=== PATIENT | female | born 1975 | race Two or more races ===

== ENCOUNTER 2024-06-14 05:53 | Emergency (ER) | payer MEDICAID, SELFPAY ==
[2024-06-14 05:55] VITALS: BMI 25.0
[2024-06-14 06:19] VITALS: BP 121/80; PULSE 75; RESP 16; TEMP 36.7; O2SAT 97
--- NOTE | 2024-06-14 06:35 | PD.EDRME ---
Rapid Medical Screening Exam RME Arrival date/time: 06/14/24 05:53 49-year-old female significant past medical history of diabetes presents to clinic with complaints of polyuria, dizziness and fatigue. I have greeted and performed a focused initial assessment of this patient. Initial appropriate labs ordered at this time. A comprehensive ED assessment and evaluation of the patient and analysis of all test and completion of medical decision making process will be conducted by additional ED provider. Chief Complaint: Dizziness Time Seen by Provider: 06/14/24 06:08 Vital signs: Vital Signs Temperature 98.0 F 06/14/24 06:19 Pulse Rate 75 06/14/24 06:19 Respiratory Rate 16 06/14/24 06:19 Blood Pressure 121/80 06/14/24 06:19 Pulse Oximetry (%) 97 06/14/24 06:19 Oxygen Delivery Method Room Air 06/14/24 06:19
[2024-06-14 06:58] LABS: Basophils # (Auto) 0.1 Thou/mm3 (0.0-0.2); Basophils % (Auto) 1 % (0-2.5); Eosinophils # (Auto) 0.2 Thou/mm3 (0.0-0.5); Eosinophils % (Auto) 2 % (0-10); Hematocrit 38.6 % (36.0-46.0); Hemoglobin 13.6 g/dL (12.0-16.0); Immature Granulocytes % (Auto) 0 % (0-0); Immature Granulocytes Auto 0.03 Thou/mm3 (0.00-0.00); Lymphocytes # (Auto) 3.6 Thou/mm3 (1.0-4.8); Lymphocytes % (Auto) 33 % (10-50); Mean Corpuscular HGB Conc 35.2 g/dl (31.0-37.0); Mean Corpuscular Hemoglobin 29.5 pg (25.0-35.0); Mean Corpuscular Volume 84 fL (80-100); Monocytes # (Auto) 0.7 Thou/mm3 (0.0-0.8); Monocytes % (Auto) 6 % (0-12); Neutrophils # (Auto) 6.2 Thou/mm3 (1.8-7.7); Neutrophils % (Auto) 58 % (37-80); Nucleated Red Blood Cell % 0 /100 WBC (0); Platelet Count 293 Thou/mm3 (140-440); RDW Standard Deviation 38.2 fL (36.4-46.3); Red Blood Count 4.61 Miln/mm3 (4.00-5.20); White Blood Count 10.7 Thou/mm3 (3.6-11.0)
[2024-06-14 07:00] LABS: Beta Hydroxybutyrate 0.2 mmol/L (<0.6)
[2024-06-14 07:19] LABS: Collection Type, Urine Clean Catch
[2024-06-14 07:30] LABS: Alanine Aminotransferase 19 U/L (10-49); Albumin, Serum 4.7 gm/dL (3.5-5.0); Albumin/Globulin Ratio 1.7 (1.2-2.2); Alkaline Phosphatase 83 U/L (46-116); Anion Gap 9 (7-16); Aspartate Amino Transferase 15 U/L (0-34); BUN/Creatinine Ratio 16 Ratio (12-20); Bilirubin,Total 0.6 mg/dL (0.3-1.2); Blood Urea Nitrogen 11 mg/dL (9-23); Calcium 9.9 mg/dL (8.3-10.6); Calcium (Corrected) 9.9 mg/dL (8.5-10.1); Carbon Dioxide 25.5 mMol/L (20.0-31.0); Chloride 103 mMol/L (98-107); Creatinine (Component) 0.7 mg/dL (0.6-1.3); Estimated Creatinine Clearance 88.4 mL/min (>60); Globulin 2.7 gm/dL (2.3-3.5); Glucose 197 mg/dL (74-106); Lipase 38 U/L (12-53); Osmolality,Calculated 278 (275-295); Potassium 3.5 mMol/L (3.4-5.1); Sodium 137 mMol/L (136-145); Total Protein 7.4 gm/dL (5.7-8.2); eGFR > 60 See Note
[2024-06-14 07:39] LABS: HCG Qualitative,Urine Negative
[2024-06-14 07:49] LABS: Bacteria,Urine Rare; Bilirubin,Urine Negative (Negative); Blood,Urine Negative (Negative); Clarity,Urine Clear (Clear/Hazy); Color,Urine Lt-Yellow (Lt Yel-Yel); Glucose, Urine 4+ (Negative); Ketones,Urine Negative (Negative); Leukocyte Esterase,Urine Positive (Negative); Nitrite,Urine Negative (Negative); Protein,Urine Negative (Neg - Trace); RBC,Urine 3 /hpf (0-3); Specific Gravity,Urine 1.043 (1.001-1.035); Squamous Epithelial Cell,Urine 1 /hpf (0-5); Urobilinogen,Urine Negative mg/dL (0.0-1.0); WBC,Urine 1 /hpf (0-5)
--- NOTE | 2024-06-14 07:51 | EDNOTE_ITS ---
ED Weakness RME/HPI General Chief complaint: Dizziness Stated complaint: DIZZINESS, FREQ URINATION, Time Seen by Provider: 06/14/24 06:08 Arrival date/time: 06/14/24 05:53 RME / HPI RME / HPI Narrative: 06/14/24 05:53 49-year-old female significant past medical history of diabetes presents to clinic with complaints of polyuria, dizziness and fatigue. I have greeted and performed a focused initial assessment of this patient. Initial appropriate labs ordered at this time. A comprehensive ED assessment and evaluation of the patient and analysis of all test and completion of medical decision making process will be conducted by additional ED provider. DR. ZHU MAIN ED EVALUATION 49 year old female with history of diabetes presents to the ED for polyuria beginning 2 days ago and generalized weakness beginning at 04:00 am today. Accompanied by feeling her heart was beating fast. Denies fevers, chills, chest pain, cough, shortness of breath, abdominal pain, vomiting, diarrhea, painful urination, or problems with walking. Mentioned she was started on Ozempic 3 weeks ago and still on Glipizide. Related Data Home Medications ?Medication ?Instructions ?Recorded ?Confirmed empagliflozin 25 mg tablet 25 mg PO DAILY 06/14/24 06/14/24 (Jardiance) glipizide 10 mg tablet 10 mg PO BID 06/14/24 06/14/24 Allergies Allergy/AdvReac Type Severity Reaction Status Date / Time No Known Allergies Allergy Verified 06/14/24 05:57 Review of Systems Review of Systems Narrative Review of Systems: GEN: No fever, no chills, no weight loss, +generalized weakness EYES: No discharge, no visual changes, no pain HEENT: No ear pain, no congestion, no sore throat PULM: No shortness of breath, no cough, no congestion CV: No chest pain, no dyspnea on exertion, no palpitations GI: No nausea, no vomiting, no diarrhea, no pain, no constipation : +polyuria, no dysuria MUSC/SKEL No joint pain, no back pain SKIN: No rash NEURO: +generalized weakness, no headache ED Exam Narrative Physical exam: GENERAL APPEARANCE: Well hydrated, well nourished, in no acute distress. VITALS: All vitals were reviewed and the pulse ox is 97% on room air which is normal according to my interpretation. HEENT: Normocephalic, atramatic, EOMI, EACs are patent. There is no bulge or retraction. Throat without erythema or exudate. Moist oromucosa. No jaundice NECK: Supple, no JVD or bruits. CARDIOVASCULAR: Heart regular without S3-S4 or murmur. No rubs or gallops. LUNGS/CHEST: Clear to auscultation bilaterally. No rales, rhonchi, or wheezing. Normal inspection. ABDOMEN: Soft, nontender, with normal bowel sounds. No pulsatile masses. No rebound, rigidity, or guarding. No incarcerated hernia. Normal inspection and palpation. EXTREMITIES: Normal inspection and palpation. No edema, clubbing, or cyanosis. Intact CSM SKIN: Warm and dry without rashes. Normal inspection. MUSCULOSKELETAL: Normal inspection. No gross deformity, full ROM all extremities NEURO: Alert and oriented x3. Cranial nerves II through XII grossly intact. There are no other motor or sensory deficits noted. PSYCHIATRIC: Normal mood and affect. No psychosis Course Quality Measures none Orders Category Date Time Status Beta Hydroxybutyrate Stat Lab 06/14/24 06:51 Completed CBC Stat Lab 06/14/24 06:51 Completed Comprehensive Metabolic Panel Stat Lab 06/14/24 06:51 Completed HCG Qualitative,Urine Stat Lab 06/14/24 07:14 Completed Lipase Stat Lab 06/14/24 06:51 Completed Urinalysis Stat Lab 06/14/24 07:14 Completed Sodium Chloride 0.9% 1000 ml [Ns] 1,000 ml Med 06/14/24 07:58 Discontinued IV 999 mls/hr Vital Signs Vital signs: Vital Signs Temperature 98.0 F 06/14/24 06:19 Pulse Rate 75 06/14/24 06:19 Respiratory Rate 16 06/14/24 06:19 Blood Pressure 121/80 06/14/24 06:19 Pulse Oximetry (%) 97 06/14/24 06:19 Oxygen Delivery Method Room Air 06/14/24 06:19 Weakness MDM Narrative MDM Narrative:: I, Aleyda Dumont, am scribing for and in the presence of Dr. Zhu. CBC is negative. CMP is negative. Lipase is negative. Blood sugar was 197. Beta hydroxy is negative. test is negative. UA is negative for UTI. In the emergency department the patient is given a liter normal saline bolus. Benign exam. No neurological deficit. No DKA. Patient data External records reviewed:: [facility] previous records (I reviewed ED visit on 07/10/2023) Clinical information provided by:: patient Social determinants that could affect healthcare access:: none Patient has the following chronic illnesses:: Diabetes How is presenting disease/condition affected by chronic disease/condition?: exacerbated by Evaluation data The following diagnostics were reviewed and interpreted by me:: lab results Lab and/or radiology exams considered but not ordered:: None Interpretation Summary: See MDM Medications / Prescriptions Medications or Prescriptions considered but not ordered:: None Medication administrations:: Medication Administration History Discontinued Medications Sodium Chloride (Ns) 1,000 mls @ 999 mls/hr IV .Q1H1M ONE Stop: 06/14/24 08:58 Last Infusion: 06/14/24 08:58 Dose: Infused Documented By: Admin: 06/14/24 08:02 Dose: 999 mls/hr Documented By: AM See above Consultations Consultation(s) initiated? (list below): No Diagnosis Weakness Differential Diagnosis: anemia, dehydration and other (hyperglycemia ) Most likely diagnosis given after review of the tests above:: Dizziness Hyperglycemia Admission Indicated Admission indicated?: not indicated Admission Request Was there a request for admission?: No Disposition Plan Disposition Plan: Discharge Discharge Attestation Discharge Attestation: The patient and all family members were given an opportunity to ask questions and understood the discharge instructions. Discharge instructions specifically effects, indications for sooner follow up or return to the emergency department, and the expected course of current diagnosis. Patient condition: Stable Discharge Plan Plan Patient Disposition: HOME (Self Care) Disposition Comment: Stable to go home Prescriptions/Referrals Prescriptions/Med Rec: No Action Jardiance 25 mg tablet 25 mg PO DAILY Referrals: No Primary/Family,Physician [Primary Care Provider] - In 1 week Problem List Clinical Impression: Dizziness, Hyperglycemia Patient/Caregiver Discharge Instructions Education Materials: ED Diabetes with High Blood Sugar, ED Dizziness, Uncertain Cause Additional Instructions: No driving. No operating heavy equipments. No reagan. Rest. Drink plenty of liquid. Take medication for diabetes. Follow-up with your medical doctor in 3 days. Return the emergency department if condition worsens or if new symptoms develop. Print Language: Armenian Stand Alone Forms: Donita Award Info., Patient Portal Info Letter
[2024-06-14] MEDS: SODIUM CHLORIDE 0.9% 1000 ML 1,000 ML 999 ML IV (08:02)
[2024-06-14 08:03] VITALS: BP 113/67; PULSE 68; RESP 18; TEMP 36.8; O2SAT 97
[2024-06-14 08:56] VITALS: BP 113/67; PULSE 69; RESP 20; O2SAT 99
[2024-06-14 09:53] VITALS: BP 104/63; PULSE 72; RESP 18; O2SAT 97
== END 2024-06-14 10:00 | disposition home or self-care (01) ==
PROVIDERS: Nurse Practitioner Primary Care; Emergency Provider Emergency Medicine
DX: E11.65 Type 2 diabetes mellitus with hyperglycemia (principal); Z79.84 Long term (current) use of oral hypoglycemic drugs
CPT/HCPCS: 36415; 80053; 81001; 81025; 82010; 83690; 85025; 99284; J7030

== ENCOUNTER → 2025-01-10 | Outpatient (CLI) | payer MEDICAID, SELFPAY ==
--- NOTE | 2025-01-10 07:00 | EKG_ITS ---
[facility] Test Date: 2025-01-10 Pat Name: LARA SAEED Department: Room: - Gender: Female Test Puller: MELISA : 1975 Requested By: Ulises Daniel Order Number: [id number] Reading MD: Ulises Daniel Measurements Intervals [place] Rate: 72 P: 25 OR: 131 QRS: 4 QRSD: 80 T: 45 QT: 347 QTc: 380 Interpretive Statements SINUS RHYTHM LOW QRS VOLTAGE IN PRECORDIAL LEADS [QRS DEFLECTION < 1.0 mV IN CHEST LEADS] No previous ECG available for comparison /[id number]/[email or web address]/[id number]
[2025-01-10 08:30] LABS: Collection Type, Urine Clean Catch
[2025-01-10 08:54] LABS: Basophils # (Auto) 0.1 Thou/mm3 (0.0-0.2); Basophils % (Auto) 1 % (0-2.5); Eosinophils # (Auto) 0.2 Thou/mm3 (0.0-0.5); Eosinophils % (Auto) 3 % (0-10); Hematocrit 38.4 % (36.0-46.0); Hemoglobin 13.6 g/dL (12.0-16.0); Immature Granulocytes Auto 0.02 Thou/mm3 (0.00-0.00); Lymphocytes # (Auto) 2.9 Thou/mm3 (1.0-4.8); Lymphocytes % (Auto) 34 % (10-50); Mean Corpuscular HGB Conc 35.4 g/dl (31.0-37.0); Mean Corpuscular Hemoglobin 29.8 pg (25.0-35.0); Mean Corpuscular Volume 84 fL (80-100); Monocytes # (Auto) 0.4 Thou/mm3 (0.0-0.8); Monocytes % (Auto) 5 % (0-12); Neutrophils # (Auto) 4.8 Thou/mm3 (1.8-7.7); Neutrophils % (Auto) 57 % (37-80); Nucleated Red Blood Cell # 0.00 Thou/mm3 (0.00-0.00); Nucleated Red Blood Cell % 0 /100 WBC (0); Platelet Count 286 Thou/mm3 (140-440); RDW Standard Deviation 40.0 fL (36.4-46.3); Red Blood Count 4.57 Miln/mm3 (4.00-5.20); White Blood Count 8.4 Thou/mm3 (3.6-11.0)
[2025-01-10 09:07] LABS: Bacteria,Urine Rare; Bilirubin,Urine Negative (Negative); Blood,Urine Negative (Negative); Clarity,Urine Clear (Clear/Hazy); Color,Urine Colorless (Lt Yel-Yel); Glucose, Urine 4+ (Negative); Ketones,Urine Negative (Negative); Leukocyte Esterase,Urine Negative (Negative); Nitrite,Urine Negative (Negative); PH,Urine 6.0 (5.0-7.0); Protein,Urine Negative (Neg - Trace); RBC,Urine 3 /hpf (0-3); Specific Gravity,Urine 1.035 (1.001-1.035); Squamous Epithelial Cell,Urine 2 /hpf (0-5); Urobilinogen,Urine Negative mg/dL (0.0-1.0); WBC,Urine 1 /hpf (0-5)
[2025-01-10 09:16] LABS: Partial Thromboplastin Time 24.9 Seconds (22.0-36.0)
[2025-01-10 09:21] LABS: Alanine Aminotransferase 20 U/L (10-49); Albumin, Serum 4.6 gm/dL (3.5-5.0); Albumin/Globulin Ratio 1.8 (1.2-2.2); Alkaline Phosphatase 72 U/L (46-116); Anion Gap 8 (7-16); Aspartate Amino Transferase 15 U/L (0-34); BUN/Creatinine Ratio 14 Ratio (12-20); Bilirubin,Total 0.6 mg/dL (0.3-1.2); Blood Urea Nitrogen 11 mg/dL (9-23); Calcium 9.7 mg/dL (8.3-10.6); Calcium (Corrected) 9.7 mg/dL (8.5-10.1); Carbon Dioxide 27.7 mMol/L (20.0-31.0); Chloride 103 mMol/L (98-107); Creatinine (Component) 0.8 mg/dL (0.6-1.3); Estimated Creatinine Clearance 84.5 mL/min (>60); Globulin 2.6 gm/dL (2.3-3.5); Glucose 196 mg/dL (74-106); Osmolality,Calculated 281 (275-295); Potassium 3.7 mMol/L (3.4-5.1); Sodium 139 mMol/L (136-145); Total Protein 7.2 gm/dL (5.7-8.2); eGFR > 60 See Note
== END | disposition home or self-care (01) ==
LOC: SLAB 01-13 08:49
PROVIDERS: PCP Nurse Practitioner Family; Referring Provider Specialist; Visit Provider Specialist
DX: K42.9 Umbilical hernia without obstruction or gangrene (principal)
CPT/HCPCS: 36415; 80053; 81001; 85025; 85730; 93005